=== PATIENT | female | born 1950 | race Caucasian/White ===

== ENCOUNTER → 2020-06-15 11:52 | Outpatient (CLI) | payer MEDICARE, SELFPAY ==
[2020-06-15 11:57] LABS: Microscopic, Urine URINE MICROSCOPIC (MICROSCOPIC)
[2020-06-15 12:16] LABS: Appearance,Urine CLOUDY (Clear); Bilirubin,Urine Negative (Negative); Blood, Urine TRACE-I (Negative); Color,Urine YELLOW (Yellow); Glucose,Urine (UA) Negative (Negative); Ketones,Urine Negative (Negative); Leukocyte Esterase,Urine 2+ (Negative); Nitrate,Urine Negative (Negative); PH,Urine 5.5 (5.0-8.5); Protein,Urine 1+ (Negative); Specific Gravity, Urine 1.015 (1.005-1.030); Urobilinogen,Urine 0.2 EU/dl (0.2)
[2020-06-15 12:22] LABS: Amorphous Sediment,Urine 1+ /lpf; Bacteria,Urine 2+ /lpf; RBC,Urine Occasional #/hpf (0-3)
== END ==
PROVIDERS: Visit Provider Family Medicine
DX: R30.0 Dysuria (principal); R82.90 Unspecified abnormal findings in urine
CPT/HCPCS: 81001; 87086; 87088; 87186